=== PATIENT | male | born 1995 | race Caucasian/White ===

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

== ENCOUNTER 2021-01-02 23:10 | Emergency (ER) | payer BC, OTHER ==
[~2021-01-02] VITALS: Ht 190.5 cm; Wt 97.7 kg
[~2021-01-02 23:10] MED LIST: CIPR500T94 PO; METR500T PO
[2021-01-02 23:15] VITALS: BP 154/71
[2021-01-02] MEDS ORDERED: IV NORMAL SALINE 1,000ML 1,000 ML IV ONE (23:30)
--- NOTE | 2021-01-02 23:34 | PHYS DOC ---
Past History Past Medical History: No Pertinent History (EHSAN GUO APRN) Past Surgical History: No Surgical History (EHSAN GUO APRN) Alcohol Use: None Drug Use: None (EHSAN GUO APRN) General Adult EDM: Chief Complaint: CHEST PAIN HPI: HPI: Patient is a 25-year-old male who presents with anxiety attack. Patient states "I smoked pot earlier tonight and then I was just sitting and also my heart started racing if like it was going to jump out of my chest". "I could not get myself to calm down so I asked my roommate to take me to the hospital". Patient denies taking any other medications or drinking any alcohol. Patient denies chest pain, shortness of breath, nausea/vomiting. (EHSAN GUO APRN) Review of Systems: Review of Systems: Constitutional: Denies fever or chills Eyes: Denies change in visual acuity HENT: Denies nasal congestion or sore throat Respiratory: Denies cough or shortness of breath Cardiovascular: Denies chest pain, racing heart Psychiatric: Reports anxiety (EHSAN GUO APRN) Current Medications: Current Meds: Current Medications Medications (Trade) Dose Ordered Sig/Oj Start Time Stop Time Status Last Admin Dose Admin Lorazepam (Ativan Inj) 1 mg 1X ONCE 01/02/21 23:30 01/02/21 23:31 DC Sodium Chloride 1,000 ml @ 1,000 mls/hr 1X ONCE 01/02/21 23:30 01/03/21 00:29 (EHSAN GUO APRN) Allergies: Allergies: Allergies Coded Allergies Type Severity Reaction Last Updated Verified azithromycin Allergy Unknown 01/02/21 Yes (EHSAN GUO APRN) Physical Exam: PE: Constitutional: Well developed, well nourished, no acute distress, non-toxic appearance. [] HENT: Normocephalic, atraumatic, bilateral external ears normal, oropharynx moist, no oral exudates, nose normal. [] Eyes: PERRLA, EOMI, conjunctiva normal, no discharge. [] Neck: Normal range of motion, no tenderness, supple, no stridor. [] Cardiovascular:Heart rate sinus tachycardia, no murmur [] Lungs & Thorax: Bilateral breath sounds clear to auscultation [] Abdomen: Bowel sounds normal, soft, no tenderness, no masses, no pulsatile masses. [] Skin: Warm, dry, no erythema, no rash. [] Back: No tenderness, no CVA tenderness. [] Extremities: No tenderness, no cyanosis, no clubbing, ROM intact, no edema. [] Neurologic: Alert and oriented X 3, normal motor function, normal sensory function, no focal deficits noted. [] Psychologic: Affect normal, judgement normal, mood normal. [] (EHSAN GUO APRN) Current Patient Data: Vital Signs: Vital Signs Date Time Temp Pulse Resp B/P (MAP) Pulse Ox O2 Delivery O2 Flow Rate FiO2 01/02/21 23:15 98.3 111 28 154/71 (98) 98 Room Air (EHSAN GUO APRN) EKG: EKG: Sinus tachycardia. Heart rate [address] Suero. No STEMI. [] (EHSAN GUO APRN) Radiology/Procedures: Radiology/Procedures: [] (EHSAN GUO APRN) Heart Score: C/O Chest Pain: No Risk Factors: Risk Factors: DM, Current or recent (<one month) smoker, HTN, HLP, family history of CAD, obesity. Risk Scores: Score 0 - 3: 2.5% MACE over next 6 weeks - Discharge Home Score 4 - 6: 20.3% MACE over next 6 weeks - Admit for Clinical Observation Score 7 - 10: 72.7% MACE over next 6 weeks - Early Invasive Strategies (EHSAN GUO APRN) Course & Med Decision Making: Course & Med Decision Making Pertinent Labs and Imaging studies reviewed. (See chart for details) [] 25-year-old male who presents with panic attack. Patient reports smoking pot earlier in the night and feeling like his heart was racing. Patient's work-up in the ER consisted of EKG, UDS. Patient treated with Ativan and fluids. Patient EKG shows sinus tachycardia. Heart rate 144. Patient's heart rate improved and is 106 after fluids and Ativan. Patient reports he feels much better. Advised patient he most likely had a panic attack. Advised patient to discontinue drug use. Patient is hemodynamically stable. Patient is appreciative and okay with discharge plan. (EHSAN GUO APRN) Dragon Disclaimer: Dragon Disclaimer: This electronic medical record was generated, in whole or in part, using a voice recognition dictation system. (EHSAN GUO APRN) Attending Co-Sign The patient was seen and interviewed as well as examined at the bedside. The chart was reviewed. The case was discussed. Agree with the plan of care. (ESTER SUERO DO) Departure Departure: Impression: Primary Impression: Panic attack Additional Impression: Drug abuse, marijuana Disposition: HOME / SELF CARE / HOMELESS Condition: STABLE Referrals: LEONARDA VERA MD (PCP) Patient Instructions: Palpitations, [id number] Additional Instructions: You are seen in the emergency room for heart palpitations after smoking pot. Your heart rate was elevated on arrival but decreased after fluids and Ativan were given. Make sure you are drinking plenty of fluids. Refrain from smoking pot in the future. Return to emergency room with worsening symptoms or concerns. EMERGENCY DEPARTMENT GENERAL DISCHARGE INSTRUCTIONS Thank you for coming to [facility] (ED) today and trusting us with you care. We trust that you had a positivie experience in our Emergency Department. If you wish to speak to the department management, you may call the director at [phone]. YOUR FOLLOW UP INSTRUCTIONS ARE FOLLOWS: 1. Do you have a private Doctor? If you do not have a private doctor, please ask for a resource list of physicians or clinics that may be able to assist you with follow up care. 2. The Emergency Physician has interpreted your x-rays. The X-Ray specialist will also review them. If there is a change in the findings, you will be notified in 48 hours when at all possible. 3. A lab test or culture has been done, your results will be reviewed and you will be notified if you need a change in treatment. ADDITIONAL INSTRUCTIONS AND INFORMATION: 1. Your care today has been supervised by a physician who is specially trained in emergency care. Many problems require more than one evaluation for a complete diagnosis and treatment. We recommend that you schedule your follow up appointment as recommended to ensure complete treatment of you illness or injury. If you are unable to obtain follow up care and continue to have a problem, or if your condition worsens, we recommend that you return to the ED. 2. We are not able to safely determine your condition over the phone nor are we able to give sound medical advice over the phone. For these safety reasons, if you call for medical advice we will ask you to come to the ED for further evaluation. 3. If you have any questions regarding these discharge instructions please call the ED at [phone]. SAFETY INFORMATION: In the interest of safety, wellness, and injury prevention; we encourage you to wear your sealbelt, if you smoke; quite smoking, and we encourage family to use a protective helmet for bicycling and other sporting events that present an increased risk for head injury. IF YOUR SYMPTOMS WORSEN OR NEW SYMPTOMS DEVELOP, OR YOU HAVE CONCERNS ABOUT YOUR CONDITION; OR IF YOUR CONDITION WORSENS WHILE YOU ARE WAITING FOR YOUR FOLLOW UP APPOINTMENT; EITHER CONTACT YOUR PRIMARY CARE DOCTOR, THE PHYSICIAN WHOSE NAME AND NUMBER YOU WERE GIVEN, OR RETURN TO THE ED IMMEDIATELY. EHSAN GUO APRN Jan 02, 2021 23:34 ESTER SUERO DO Jan 03, 2021 05:59
--- NOTE | 2021-01-03 00:26 | EKG ---
[address] [address] Test Date: 2021-01-02 Test Time: 23:10:40 Pat Name: LELO MCCORD Department: Room: Gender: M Workday Consultant: : 1995 Requested By: EHSAN GUO Order Number: [id number] Reading MD: Sathya Weinberg Measurements Intervals [place] Rate: 144 P: [place]: QRS: 75 QRSD: 104 T: 40 QT: 326 QTc: 509 Interpretive Statements SUPRAVENTRICULAR TACHYCARDIA No previous ECG available for comparison Electronically Signed On 01-08-2021 10:14:33 TRAFFIC SUPERVISOR by Sathya Weinberg
[2021-01-03 00:47] LABS: AMPHETAMINE/METHAMPHETAMINE NEG (NEG); BARBITURATES NEG (NEG); BENZODIAZEPINES NEG (NEG); CANNABINOIDS POS (NEG); COCAINE NEG (NEG); METHADONE NEG (NEG); OPIATES NEG (NEG); PHENCYCLIDINE NEG (NEG)
[2021-01-03 00:51] LABS: BACTERIA,URINE 0 /HPF (0-FEW); BILIRUBIN,URINE NEG (NEG); CLARITY,URINE CLEAR; COLOR,URINE YELLOW; GLUCOSE,URINE NEG (NEG); NITRITE,URINE NEG (NEG); RBC,URINE RARE /HPF (0-2); UROBILINOGEN,URINE 0.2 mg/dL (0.2 mg/dL); WBC,URINE RARE /HPF (0-4)
[2021-01-03 00:52] LABS: SQUAMOUS EPITHELIAL CELL,UR OCC /LPF
== END 2021-01-03 01:00 | disposition home or self-care (01) ==
LOC: ER 23:10
DX: F41.0 Panic disorder [episodic paroxysmal anxiety] (principal); F12.10 Cannabis abuse, uncomplicated; Z88.1 Allergy status to other antibiotic agents
CPT/HCPCS: 36415; 80307; 81001; 93005; 96361; 96374; 99284; J2060; J7030